=== PATIENT | female | born 1995 | race Caucasian/White ===

== ENCOUNTER → 2017-02-23 | Emergency (ER) | payer SELFPAY ==
[~2017-02-23] VITALS: Ht 167.6 cm; Wt 51.1 kg
[~2017-02-23] MED LIST: PRENATAL TABLE1 EAC3 PO
[2017-02-23 15:09] VITALS: BP 110/77
[2017-02-23 15:53] LABS: EOSINOPHIL COUNT 0.2 K/uL (0-0.3); HEMATOCRIT 38.8 % (36.0-46.0); IMMATURE GRANULOCYTE (%) 0.3 % (0.0-0.7); INSTRUMENT ABS NEUTROPHIL CT 6.8 K/uL; LYMPHOCYTE COUNT 1.6 K/uL (1.0-2.8); MCHC 31.4 G/DL (30.0-36.0); MCV 82.6 FL (83-99); MEAN PLAT.VOLUME 9.7 uM^3 (9.5-12.4); MONOCYTE (%) 10.6 % (3-12); NEUTROPHIL COUNT 6.8 K/uL (1.8-6.4); PLATELET COUNT 229 K/uL (156-360); RBC DIS.WIDTH-CV 16.5 % (11.8-14.6); RBC DIS.WIDTH-SD 49.4 % (39-53); WHITE BLOOD COUNT 9.6 K/uL (4.1-10.2)
[2017-02-23 16:01] LABS: CHLORIDE 102 mEq/L (99-109); POTASSIUM 4.1 mEq/L (3.7-5.4); SODIUM 136 mEq/L (136-147)
[2017-02-23 16:04] LABS: GLUCOSE 96 mg/dL (70-99)
[2017-02-23 16:05] LABS: ANION GAP 9 MEQ/L (2-14)
[2017-02-23 16:06] LABS: TOTAL BILIRUBIN 0.7 mg/dL (0.0-1.0)
[2017-02-23 16:07] LABS: ALKALINE PHOSPHATASE 51 IU/L (3-129)
[2017-02-23 16:08] LABS: GFR ESTIMATE (CALCULATED) > 59 mL/min/
[2017-02-23 16:09] LABS: UREA NITROGEN (BUN) 15 mg/dL (9-23)
[2017-02-23 16:11] LABS: CREATINE KINASE 73 IU/L (1-294)
[2017-02-23 16:35] LABS: QUANTITATIVE HCG 28552.3 MIU/ML
== END | disposition home or self-care (01) ==
LOC: EME 14:46
PROVIDERS: Physician Assistant
DX: O98.511 Other viral diseases complicating pregnancy, first trimester (principal); O26.891 Other specified pregnancy related conditions, first trimester; E86.0 Dehydration; O99.331 Smoking (tobacco) complicating pregnancy, first trimester; Z3A.08 8 weeks gestation of pregnancy; Z91.040 Latex allergy status
CPT/HCPCS: 80053; 81003; 82550; 84702; 85025; 99281; 99283

== ENCOUNTER 2017-09-20 22:47 | Outpatient (CLI) | payer OTHER ==
[2017-09-20 23:30] VITALS: BP 114/65
[2017-09-21 00:01] LABS: AMPHETAMINE NEGATIVE (500 ng/mL); BARBITURATES NEGATIVE (200 ng/mL); BENZODIAZEPINES NEGATIVE (150 ng/mL); BUPRENORPHINE NEGATIVE (10 ng/mL); COCAINE NEGATIVE (150 ng/mL); METHADONE NEGATIVE (200 ng/mL); METHAMPHETAMINE NEGATIVE (500 ng/mL); OPIATES (MORPHINE) NEGATIVE (100 ng/mL); OXYCODONE NEGATIVE (100 ng/mL); PHENCYCLIDINE NEGATIVE (25 ng/mL); PROPOXYPHENE NEGATIVE (300 ng/mL); THC CANNABINOIDS NEGATIVE (50 ng/mL); TRICYCLIC ANTIDEPRESSANTS NEGATIVE (300 ng/mL)
== END 2017-09-21 00:45 | disposition home or self-care (01) ==
LOC: LDRP-OP 22:47 → 2WEST 22:48
PROVIDERS: Advanced Practice Midwife
DX: O47.03 False labor before 37 completed weeks of gestation, third trimester (principal); O24.410 Gestational diabetes mellitus in pregnancy, diet controlled; Z91.19 Patient's noncompliance with other medical treatment and regimen; O34.03 Maternal care for unspecified congenital malformation of uterus, third trimester; Q51.3 Bicornate uterus; O99.333 Smoking (tobacco) complicating pregnancy, third trimester; F17.200 Nicotine dependence, unspecified, uncomplicated; Z3A.36 36 weeks gestation of pregnancy
CPT/HCPCS: 59025; 87081; G0378; J7120

== ENCOUNTER 2017-09-21 23:45 | Outpatient (CLI) | payer OTHER ==
[2017-09-22 00:06] VITALS: BP 112/73
[2017-09-22 02:07] LABS: GROUP B STREP NEGATIVE (NEGATIVE)
== END 2017-09-22 01:11 | disposition home or self-care (01) ==
LOC: LDRP-OP 23:45 → 2WEST 23:46 → LDRP-OP 11-10 01:02
PROVIDERS: Advanced Practice Midwife
DX: O47.03 False labor before 37 completed weeks of gestation, third trimester (principal); O24.410 Gestational diabetes mellitus in pregnancy, diet controlled; Z91.19 Patient's noncompliance with other medical treatment and regimen; O34.03 Maternal care for unspecified congenital malformation of uterus, third trimester; Q51.3 Bicornate uterus; O99.333 Smoking (tobacco) complicating pregnancy, third trimester; F17.200 Nicotine dependence, unspecified, uncomplicated; Z3A.36 36 weeks gestation of pregnancy
CPT/HCPCS: 59025; 87653; G0378

== ENCOUNTER 2017-09-25 03:42 | Outpatient (CLI) | payer OTHER ==
[2017-09-25 04:00] VITALS: BP 112/70
[2017-09-25 05:23] VITALS: BP 92/55
== END 2017-09-25 07:35 | disposition home or self-care (01) ==
LOC: LDRP-OP 03:42 → 2WEST 03:43 → LDRP-OP 11-10 01:19
DX: O47.1 False labor at or after 37 completed weeks of gestation (principal); O99.333 Smoking (tobacco) complicating pregnancy, third trimester; F17.200 Nicotine dependence, unspecified, uncomplicated; Z3A.37 37 weeks gestation of pregnancy
CPT/HCPCS: 59025; G0378

== ENCOUNTER 2017-10-01 20:12 | Inpatient (IN) | payer OTHER ==
[~2017-10-01] VITALS: Ht 167.6 cm; Wt 64.1 kg
[2017-10-01 21:03] LABS: BASOPHIL (%) 0.3 % (0-1); EOSINOPHIL (%) 1.3 % (0-5); EOSINOPHIL COUNT 0.2 K/uL (0-0.3); HEMATOCRIT 31.2 % (36.0-46.0); HEMOGLOBIN 10.6 G/DL (11.9-15.5); IMMATURE GRANULOCYTE (%) 0.7 % (0.0-0.7); LYMPHOCYTE COUNT 1.9 K/uL (1.0-2.8); MCH 29.5 PG (29.0-34.0); MCV 86.9 FL (83-99); MONOCYTE (%) 5.9 % (3-12); MONOCYTE COUNT 0.7 K/uL (0-0.8); NEUTROPHIL (%) 76.8 % (45-76); NEUTROPHIL COUNT 9.6 K/uL (1.8-6.4); PLATELET COUNT 189 K/uL (156-360); RBC DIS.WIDTH-CV 13.9 % (11.8-14.6); RBC DIS.WIDTH-SD 43.6 % (39-53); RED BLOOD COUNT 3.59 M/uL (3.80-5.20); WHITE BLOOD COUNT 12.4 K/uL (4.1-10.2)
[2017-10-01 21:45] VITALS: BP 119/73
[2017-10-01 22:01] VITALS: BP 125/57
[2017-10-01 22:16] VITALS: BP 115/56
[2017-10-01 22:31] VITALS: BP 117/79
[2017-10-01 23:30] VITALS: BP 121/74
[2017-10-02 00:32] VITALS: BP 118/72
[2017-10-02 06:28] LABS: BASOPHIL (%) 0.3 % (0-1); BASOPHIL COUNT 0.1 K/uL (0-0.1); EOSINOPHIL (%) 0.9 % (0-5); EOSINOPHIL COUNT 0.1 K/uL (0-0.3); HEMOGLOBIN 9.8 G/DL (11.9-15.5); IMMATURE GRANULOCYTE (%) 0.8 % (0.0-0.7); LYMPHOCYTE (%) 16.6 % (15-42); LYMPHOCYTE COUNT 2.5 K/uL (1.0-2.8); MCH 28.7 PG (29.0-34.0); MCHC 32.7 G/DL (30.0-36.0); MONOCYTE (%) 8.3 % (3-12); MONOCYTE COUNT 1.3 K/uL (0-0.8); NEUTROPHIL (%) 73.1 % (45-76); PLATELET COUNT 189 K/uL (156-360); RBC DIS.WIDTH-CV 13.8 % (11.8-14.6); RBC DIS.WIDTH-SD 44.7 % (39-53); RED BLOOD COUNT 3.41 M/uL (3.80-5.20); WHITE BLOOD COUNT 15.1 K/uL (4.1-10.2)
[2017-10-02 07:00] VITALS: BP 112/73
[2017-10-02 14:35] VITALS: BP 119/74
[2017-10-02 14:45] LABS: AMPHETAMINE NEGATIVE (500 ng/mL); BARBITURATES NEGATIVE (200 ng/mL); BENZODIAZEPINES NEGATIVE (150 ng/mL); BUPRENORPHINE NEGATIVE (10 ng/mL); COCAINE NEGATIVE (150 ng/mL); METHADONE NEGATIVE (200 ng/mL); METHAMPHETAMINE NEGATIVE (500 ng/mL); OPIATES (MORPHINE) NEGATIVE (100 ng/mL); OXYCODONE NEGATIVE (100 ng/mL); PHENCYCLIDINE NEGATIVE (25 ng/mL); PROPOXYPHENE NEGATIVE (300 ng/mL); THC CANNABINOIDS NEGATIVE (50 ng/mL); TRICYCLIC ANTIDEPRESSANTS NEGATIVE (300 ng/mL)
[2017-10-02 23:05] VITALS: BP 116/76
== END 2017-10-03 12:45 | disposition home or self-care (01) | DRG 775 ==
LOC: LDRP-OP 20:12 → 2WEST 20:16 → LDRP-OP 11-10 08:02
PROVIDERS: Advanced Practice Midwife; Obstetrics & Gynecology Obstetrics
PROC: 10E0XZZ Delivery of Products of Conception, External Approach (ICD-10-PCS; principal; 2017-10-01)
PROC: 10907ZC Drainage of Amniotic Fluid, Therapeutic from Products of Conception, Via Natural or Artificial Opening (ICD-10-PCS; 2017-10-01)
DX: O99.334 Smoking (tobacco) complicating childbirth (principal); Z91.19 Patient's noncompliance with other medical treatment and regimen; O24.429 Gestational diabetes mellitus in childbirth, unspecified control; Z37.0 Single live birth; Z3A.38 38 weeks gestation of pregnancy
CPT/HCPCS: 80306 90; 85025; 86850; 86870; 86900; 86901; 86905; 86920; J1050

== ENCOUNTER 2018-04-12 16:44 | Emergency (ER) | payer OTHER ==
[~2018-04-12] VITALS: Ht 167.6 cm; Wt 50.5 kg
[2018-04-12 19:45] VITALS: BP 114/73
== END 2018-04-12 19:46 | disposition home or self-care (01) ==
LOC: EME 16:44
DX: S00.83XA Contusion of other part of head, initial encounter (principal); Y04.2XXA Assault by strike against or bumped into by another person, initial encounter; Y07.03 Male partner, perpetrator of maltreatment and neglect; M41.9 Scoliosis, unspecified; F17.200 Nicotine dependence, unspecified, uncomplicated; Z91.040 Latex allergy status
CPT/HCPCS: 70450; 70486; 99281; 99284